=== PATIENT | female | born 1980 | race Two or more races ===

== ENCOUNTER 2017-11-29 02:30 | Emergency (ER) | payer OTHER ==
[~2017-11-29] VITALS: Ht 157.5 cm; Wt 52.2 kg
[2017-11-29 02:34] VITALS: BP 128/82
== END 2017-11-29 03:34 | disposition home or self-care (01) ==
LOC: ER 02:32
DX: S40.269A Insect bite (nonvenomous) of unspecified shoulder, initial encounter (principal); S80.862A Insect bite (nonvenomous), left lower leg, initial encounter; Z88.8 Allergy status to other drugs, medicaments and biological substances; Z88.2 Allergy status to sulfonamides; Z88.1 Allergy status to other antibiotic agents; W57.XXXA Bitten or stung by nonvenomous insect and other nonvenomous arthropods, initial encounter; Y93.89 Activity, other specified; Y92.89 Other specified places as the place of occurrence of the external cause; Y99.8 Other external cause status
CPT/HCPCS: 99282; A4606; Z7610